=== PATIENT | male | born 1995 | race Hispanic/Latino ===

== ENCOUNTER 2018-01-28 20:27 | Emergency (ER) | payer OTHER, SELFPAY ==
[2018-01-28] MEDS ORDERED: Adacel (T-DAP) 0.5 ML VIAL ONE (20:43)
[2018-01-28] MEDS ORDERED: Bupivacaine 0.5% 10 ML VIAL ONE (21:56)
--- NOTE | 2018-01-28 22:15 | RAD ---
RIGHT INDEX FINGER: 01/28/18 Two views. HISTORY: Injury to right finger with pain. FINDINGS/IMPRESSION: No fracture, dislocation or other acute osseous abnormality identified. POS: [facility]
[2018-01-28] MEDS ORDERED: Bacitracin Zinc 1 Packet ONE ×2 (22:58→23:00)
== END 2018-01-28 23:24 | disposition home or self-care (01) ==
LOC: ERS 20:27
DX: S61.210A Laceration without foreign body of right index finger without damage to nail, initial encounter (principal); W23.0XXA Caught, crushed, jammed, or pinched between moving objects, initial encounter; Y99.0 Civilian activity done for income or pay
CPT/HCPCS: 12001; 90471; 90715; J3490

== ENCOUNTER 2019-12-20 17:28 | Emergency (ER) | payer OTHER, SELFPAY ==
--- NOTE | 2019-12-20 17:56 | RAD ---
XR Hand Lt 3 View STANDARD History: Injury. Laceration Comparison: None. Findings: No acute fracture or malalignment. No radiopaque foreign object. Impression: No acute osseous abnormality.
[2019-12-20] MEDS ORDERED: Bacitracin 1 PK ONE (18:28)
== END 2019-12-20 19:40 | disposition home or self-care (01) ==
LOC: ERS 17:28
DX: S61.412A Laceration without foreign body of left hand, initial encounter (principal); W26.8XXA Contact with other sharp object(s), not elsewhere classified, initial encounter
CPT/HCPCS: 12002

== ENCOUNTER 2020-01-01 19:37 | Emergency (ER) | payer SELFPAY | END 2020-01-01 20:05 | disposition home or self-care (01) | LOC: ERS 19:37 | DX: S61.412D Laceration without foreign body of left hand, subsequent encounter (principal); Z79.899 Other long term (current) drug therapy; X58.XXXD Exposure to other specified factors, subsequent encounter ==

== ENCOUNTER 2020-10-16 12:09 | Emergency (ER) | payer SELFPAY ==
[2020-10-16] MEDS ORDERED: Fluorescein Opthalmic Strip ONE (12:31)
[2020-10-16] MEDS ORDERED: Proparacaine 0.5% Opth 15 ML BOT ONE (12:32)
== END 2020-10-16 13:12 | disposition home or self-care (01) ==
LOC: ERS 12:09
DX: S05.02XA Injury of conjunctiva and corneal abrasion without foreign body, left eye, initial encounter (principal); W22.8XXA Striking against or struck by other objects, initial encounter
CPT/HCPCS: 99283